=== PATIENT | female | born 1995 | race Caucasian/White ===

== ENCOUNTER 2018-01-07 13:30 | Emergency (ER) | payer OTHER ==
[2018-01-07 13:39] VITALS: BP 123/91
--- NOTE | 2018-01-07 14:00 | UC ---
Complaint Female HPI - HPI Summary HPI Summary: 22 y/o female with no PMH, + meds effexor, suboxone, presents with cloudy vaginal discharge, + vaginal itching, + burning superficially with urination. Concerned about STD d/t infidelity of partner, no fever, chills. symptoms x 1 week + lower abdominal pain - History Of Current Complaint Chief Complaint: UCGU Stated Complaint: BURNING W/ CLOUDY DISCHARGE-MICTURITION Time Seen by Provider: 01/07/18 13:46 Hx Obtained From: Patient Hx Last Menstrual Period: one month ago ?: No - denies Onset/Duration: Sudden Onset, Lasting Days Timing: Constant Severity Currently: None Pain Intensity: 0 - Allergies/Home Medications Allergies/Adverse Reactions: Allergies Allergy/AdvReac Type Severity Reaction Status Date / Time No Known Allergies Allergy Verified 01/07/18 13:42 Home Medications: Home Medications Buprenorp/Nalox 8-2 MG FILM [Suboxone 8 mg-2 mg Sl Film] 1 tab PO DAILY [History Confirmed 01/07/18] Venlafaxine EXT RELEASE CAP* [Effexor Xr CAP*] 1 tab PO DAILY 01/07/18 [History Confirmed 01/07/18] PMH/Surg Hx/FS Hx/Imm Hx Previously Healthy: Yes - mental health Other History Of: Negative For: Anticoagulant Therapy - Surgical History Surgical History: None - Social History Alcohol Use: Occasionally Substance Use Type: None Substance Use Comment - Amount & Last Used: occasional Smoking Status (MU): Light Every Day Tobacco Smoker Review of Systems All Other Systems Reviewed And Are Negative: Yes Genitourinary: Positive: Dysuria, Vaginal/Penile Burning, Vaginal/Penile Itching , Vaginal/Penile Discharge Is Patient Immunocompromised?: No Physical Exam Triage Information Reviewed: Yes Vital Signs: Initial Vital Signs Temp 98.6 F 01/07/18 13:36 Pulse 65 01/07/18 13:36 Resp 18 01/07/18 13:36 BP 123/91 01/07/18 13:36 Pulse Ox 100 01/07/18 13:36 Abdomen Description: Negative: CVA Tenderness (R), CVA Tenderness (L) Pelvic Exam: Positive: External Exam Normal, Speculum Exam Normal, Discharge - milky white, Other - no pain with bimanual exam, no strawberry cervix, no cervical motion tenderness.. Negative: Cervicitis, Lesions, Mass, Tender w/ Cervical Motion, Tender Adnexa, Tender Uterus Skin Exam: Normal Complaint Female Dx - Course Course Of Treatment: UTI, concern about STI. prophylaxic abx given, follow up within 2-3 days. - Differential Dx/Diagnosis Differential Diagnosis/HQI/PQRI: Cervicitis, Sexually Transmitted Disease Provider Diagnoses: UTI, STI prphylaxis Discharge - Sign-Out/Discharge Documenting (check all that apply): Patient Departure All imaging exams completed and their final reports reviewed: No Studies - Discharge Plan Condition: Good Disposition: HOME Prescriptions: Nitrofurantoin Monohyd/M-Cryst [Macrobid 100 mg Capsule] 100 mg PO BID #10 cap Patient Education Materials: Sexually Transmitted Diseases (ED), Urinary Tract Infection in Women (ED), Bacterial Vaginosis (ED) Referrals: No Primary Care Phys,NOPCP [Primary Care Provider] - Additional Instructions: - Antibiotics as directed - STI prophylaxis given - Results from cultures for STI, urinary infection should return in 48 hours - Increase fluid intake - Obstain from sexual intercourse until results arrive - Go to ER with fever, chills, increasing abdominal pain, fever > 101 - Billing Disposition and Condition Condition: GOOD Disposition: Home
[2018-01-07] MEDS ORDERED: cefTRIAXone VIAL(*) 250 MG VIAL IM ONE (14:17)
[2018-01-07] MEDS ORDERED: Azithromycin TAB* 250 MG PO ONE (14:17)
[2018-01-07] MEDS ORDERED: Lidocaine 1%* 5 ML VIAL INJ ONE (14:19)
--- NOTE | 2018-01-09 18:41 | UC ---
- Progress Note Progress Note: 01/09/2018 Urine culture + Staph. saprophyticus. Pt Rx Macrobid PO which will cover. No change. Also Vaginal sample Positive for Gardnerella. Please notify patient Metronidazole vaginal cream sent to pharmacy. Thank you Thelma Emmanuel Discharge - Sign-Out/Discharge Documenting (check all that apply): Patient Departure - D/C home All imaging exams completed and their final reports reviewed: No Studies - Discharge Plan Condition: Good Disposition: HOME Prescriptions: Nitrofurantoin Monohyd/M-Cryst [Macrobid 100 mg Capsule] 100 mg PO BID #10 cap Patient Education Materials: Bacterial Vaginosis (ED), Sexually Transmitted Diseases (ED), Urinary Tract Infection in Women (ED) Referrals: No Primary Care Phys,NOPCP [Primary Care Provider] - Additional Instructions: - Antibiotics as directed - STI prophylaxis given - Results from cultures for STI, urinary infection should return in 48 hours - Increase fluid intake - Obstain from sexual intercourse until results arrive - Go to ER with fever, chills, increasing abdominal pain, fever > 101 - Billing Disposition and Condition Condition: GOOD Disposition: Home
== END 2018-01-07 14:50 | disposition home or self-care (01) ==
LOC: UCEAST 13:30
DX: Z11.3 Encounter for screening for infections with a predominantly sexual mode of transmission (principal); N39.0 Urinary tract infection, site not specified; F17.200 Nicotine dependence, unspecified, uncomplicated
CPT/HCPCS: 81003; 84702; 87077; 87086; 87480; 87491; 87510; 87591; 87661; 96372; 99213; A9270-GY; G0463; J0696

== ENCOUNTER 2018-05-08 21:50 | Emergency (ER) | payer OTHER ==
[2018-05-08] MEDS ORDERED: Nicotine Inhaler* 10 MG AMP INH PRN (22:52)
[2018-05-08] MEDS ORDERED: Mouth Piece, Nicotine* 1 EACH CARTRIDGE INH PRN (23:05)
[2018-05-08 23:10] LABS: Urine Appearance Cloudy; Urine Bilirubin Negative (Negative); Urine Blood Negative (Negative); Urine Color Yellow; Urine Glucose Negative (Negative); Urine Ketones Negative (Negative); Urine Nitrite Negative (Negative); Urine Protein Negative (Negative); Urine Urobilinogen Negative (Negative)
--- NOTE | 2018-05-09 02:26 | ED ---
Psychiatric Complaint - HPI Summary HPI Summary: The patient is a 23 y/o F presenting to [facility] with a chief complaint of being brought in by police for DUI after she got into an argument with her mother mojgan. She states that she was at home when she told her mom she was going to the store and took the car, but her mother, who has depression, anxiety, and bipolar disorder, got angry. The patient continued to leave the home, and her mother called the police on her, which resulted in the patient getting pulled over and brought into the ED. The patient denies SI, and she reports no previous hx of suicide attempt. She takes Effexor, Suboxone, Gabapentin, and Seroquel, which manage her conditions well. LNMP: now. - History Of Current Complaint Chief Complaint: EDMentalHealth Time Seen by Provider: 05/08/18 22:44 Hx Obtained From: Patient Hx Last Menstrual Period: now Onset/Duration: Sudden Onset, Resolved Severity Initially: Moderate Severity Currently: None Character: Frustrated Aggravating Factor(s): Other - argument with mother Alleviating Factor(s): Nothing Associated Signs And Symptoms: Positive: Negative Has Suicidal: Denies: Thoughts - Allergies/Home Medications Allergies/Adverse Reactions: Allergies Allergy/AdvReac Type Severity Reaction Status Date / Time aripiprazole [From [employer]] Allergy Hives Verified 05/08/18 21:55 PMH/Surg Hx/FS Hx/Imm Hx Endocrine/Hematology History: Denies: Hx Anticoagulant Therapy, Hx Diabetes, Hx Thyroid Disease Cardiovascular History: Denies: Hx Hypertension Respiratory History: Denies: Hx Asthma, Hx Chronic Obstructive Pulmonary Disease (COPD) GI History: Denies: Hx Ulcer Psychiatric History: Denies: Hx Eating Disorder, Hx of Violent Episodes Against Others - Surgical History Surgery Procedure, Year, and Place: none Infectious Disease History: No Infectious Disease History: Denies: Hx Hepatitis, Hx Human Immunodeficiency Virus (HIV), Traveled Outside the US in Last 30 Days - Family History Known Family History: Negative: Diabetes - Social History Alcohol Use: Occasionally Substance Use Type: Reports: None Substance Use Comment - Amount & Last Used: occasional Hx Tobacco Use: Yes Smoking Status (MU): Light Every Day Tobacco Smoker Review of Systems Negative: Fever Positive: Other - POSITIVE: argument with mother, drove while intoxicated; NEGATIVE: SI All Other Systems Reviewed And Are Negative: Yes Physical Exam - Summary Physical Exam Summary: Appearance: Well-appearing, Well-nourished, lying in bed comfortable Skin: Warm, dry, no obvious rash Eyes: sclera anicteric, no conjunctival pallor ENT: mucous membranes moist Neck: deferred Respiratory: No signs of respiratory distress Cardiovascular: Appears well perfused, pulses are nml Abdomen: deferred Musculoskeletal: Moving all 4 extremities without obvious discomfort Neurological: Awake and alert, mentation is normal, speech is fluent and appropriate Psychiatric: affect is normal, does not appear anxious or depressed Triage Information Reviewed: Yes Vital Signs On Initial Exam: Initial Vitals Temp Pulse Resp BP Pulse Ox 98.6 F 83 18 116/82 98 05/08/18 21:56 05/08/18 21:56 05/08/18 21:56 05/08/18 21:56 05/08/18 21:56 Vital Signs Reviewed: Yes Diagnostics - Vital Signs Vital Signs Temp Pulse Resp BP Pulse Ox 05/08/18 21:56 98.6 F 83 18 116/82 98 - Laboratory Lab Results: Lab Results 05/08/18 05/08/18 Range/Units 22:27 22:59 Urine Color Yellow Urine Appearance Cloudy Urine pH 5.0 (5-9) Ur Specific Spencer 1.010 (1.010-1.030) Urine Protein Negative (Negative) Urine Ketones Negative (Negative) Urine Blood Negative (Negative) Urine Nitrate Negative (Negative) Urine Bilirubin Negative (Negative) Urine Urobilinogen Negative (Negative) Ur Leukocyte Esterase Negative (Negative) Urine Glucose Negative (Negative) Serum Alcohol 157 H (<10) mg/dL Lab Statement: Any lab studies that have been ordered have been reviewed, and results considered in the medical decision making process. Course/Dx - Course Course Of Treatment: The patient is a 23 y/o F with a chief complaint of being brought in by police for DUI after she got into an argument with her mother mojgan. She was at home when she told her mom she was going to the store and took the car, but her mother, who has depression, anxiety, and bipolar disorder , got angry. The patient continued to leave the home, and her mother called the police on her, which resulted in the patient getting pulled over and brought into the ED. The patient denies SI, and she reports no previous hx of suicide attempt. She takes Effexor, Suboxone, Gabapentin, and Seroquel, which manage her conditions well. Upon physical examination, the patient exhibits no acute abnormalities. In the ED course, the patient was given a Nicotine inhaler. UA reveals serum alcohol of 157. Pending second EtOH. She is in mental health unit at time of shift change. The patient will be a sign-out to Dr. Elle Romero MD, from Dr. Fox Macdonald MD, at change of shift at 0700 pending EtOH detox, MHE, and disposition. - Differential Dx/Clinical Impression Provider Diagnosis: Substance induced mood disorder Discharge - Sign-Out/Discharge Documenting (check all that apply): Sign-Out Patient Signing out patient TO: Elle Romero - Patient will be a sign-out to Dr. Elle Romero MD, from Dr. Fox Macdonald MD, at change of shift at 0700 pending EtOH detox, MHE, and disposition. Patient Received Moderate/Deep Sedation with Procedure: No - Discharge Plan Condition: Stable Disposition: HOME Patient Education Materials: Alcohol Intoxication (ED), Alcohol Dependence (ED) Referrals: No Primary Care Phys,NOPCP [Primary Care Provider] - - Billing Disposition and Condition Condition: STABLE Disposition: Home - Attestation Statements Document Initiated by Percyibjody: Yes Documenting Scribe: Susan Ruelas Provider For Whom Cristian is Documenting (Include Credential): Dr. Fox Macdonald MD Scribe Attestation: Susan Tobar scribed for Dr. Fox Macdonald MD on 05/10/18 at 0434. Scribe Documentation Reviewed: Yes Provider Attestation: The documentation as recorded by the Susan cervantes accurately reflects the service I personally performed and the decisions made by me, Dr. Fox Macdonald MD Status of Scribe Document: Viewed
--- NOTE | 2018-05-09 07:32 | ED ---
Progress - Progress Note Progress Note: RECEIVING SIGN-OUT FROM DR. MACDONALD AT SHIFT CHANGE PENDING MHE. A 23 y/o F presents to ED for MHE due to SI comments made to mother. - Consult/PCP Time Called: 01:00 Course/Dx - Course Course Of Treatment: RECEIVING SIGN-OUT FROM DR. MACDONALD AT SHIFT CHANGE PENDING MHE. 0910: Per Dr. Caballero, psych, patient will be discharged with substance induced mood disorder. - Diagnoses Provider Diagnoses: Substance induced mood disorder Discharge - Sign-Out/Discharge Documenting (check all that apply): Patient Departure - D/C, Receiving Sign-Out Receiving patient FROM: Fox Macdonald Patient Received Moderate/Deep Sedation with Procedure: No - Discharge Plan Condition: Stable Disposition: HOME Patient Education Materials: Alcohol Intoxication (ED), Alcohol Dependence (ED) - Billing Disposition and Condition Condition: STABLE Disposition: Home - Attestation Statements Document Initiated by Scribe: Yes Documenting Scribe: Tila Adam Provider For Whom Scribe is Documenting (Include Credential): Dr. Elle Romero MD Scribe Attestation: Tila Tobar, scribed for Dr. Elle Romero MD on 05/09/18 at 1445. Scribe Documentation Reviewed: Yes Provider Attestation: The documentation as recorded by the Tila cervantes accurately reflects the service I personally performed and the decisions made by , Dr. Elle Romero MD Status of Scribe Document: Viewed
[2018-05-09 10:00] VITALS: BP 130/76
== END 2018-05-09 09:56 | disposition home or self-care (01) ==
LOC: ED 21:50
DX: F19.94 Other psychoactive substance use, unspecified with psychoactive substance-induced mood disorder (principal); F10.94 Alcohol use, unspecified with alcohol-induced mood disorder; Y90.6 Blood alcohol level of 120-199 mg/100 ml; Z88.8 Allergy status to other drugs, medicaments and biological substances; F17.200 Nicotine dependence, unspecified, uncomplicated
CPT/HCPCS: 36415; 80320; 81003; 99285; G0480

== ENCOUNTER 2018-05-11 19:08 | Inpatient (IN) | payer OTHER ==
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
[2018-05-11 19:58] LABS: Urine Appearance Cloudy; Urine Bacteria 1+ (Absent); Urine Bilirubin Negative (Negative); Urine Blood 2+ (Negative); Urine Color Straw; Urine Glucose Negative (Negative); Urine Ketones Negative (Negative); Urine Nitrite Negative (Negative); Urine Protein Negative (Negative); Urine Red Blood Cell Trace(0-2/hpf) (Absent); Urine Specific Gravity 1.004 (1.010-1.030); Urine Squamous Epithelial Cell Present (Absent); Urine Urobilinogen Negative (Negative); Urine White Blood Cell Trace(0-5/hpf) (Absent)
[2018-05-11 20:05] LABS: ABS Basophils 0.1 10^3/ul (0-0.2); ABS Eosinophils 0 10^3/ul (0-0.6); ABS Lymphocytes 1.9 10^3/ul (1.0-4.8); ABS Monocytes 0.3 10^3/ul (0-0.8); ABS Nucleated RBC 0 10^3/ul; Eosinophil % 0.5 %; Hematocrit 45 % (33-41); Hemoglobin 14.9 g/dL (12.0-16.0); Lymphocyte % 30.2 %; Mean Corpuscular HGB Conc 33 g/dL (31-36); Mean Corpuscular Hemoglobin 29 pg (27-31); Mean Corpuscular Volume 87 fL (80-97); Mean Platelet Volume 7.5 fL (7.4-10.4); Nucleated Red Blood Cells % 0; Platelet Count 454 10^3/uL (150-450); Red Cell Distribution Width 13 % (10.5-15); White Blood Count 6.3 10^3/uL (3.5-10.8)
[2018-05-11 20:22] LABS: Barbiturates Urine Screen None Detected (None Detect); Benzodiazepine Urine Screen None Detected (None Detect); Urine Cannabinoids Screen None Detected (None Detect)
[2018-05-11 20:26] LABS: ALT 27 U/L (7-52); AST 42 U/L (13-39); Albumin 4.9 g/dL (3.2-5.2); Albumin/Globulin Ratio 1.6 (1-3); Alkaline Phosphatase 63 U/L (34-104); Anion Gap 15 mmol/L (2-11); BUN/Creatinine Ratio 11.5 (8-20); Blood Urea Nitrogen 7 mg/dL (6-24); CO2 Carbon Dioxide 23 mmol/L (22-32); Calcium 9.2 mg/dL (8.6-10.3); Chloride 103 mmol/L (101-111); EGFR African American 144.6 (>60); EGFR Non-African American 119.5 (>60); Glucose 87 mg/dL (70-100); Potassium 4.1 mmol/L (3.5-5.0); Sodium 141 mmol/L (135-145); Total Protein 7.9 g/dL (6.4-8.9)
[2018-05-11 20:48] LABS: Salicylate < 2.50 mg/dL (<30)
[2018-05-11 20:49] LABS: Alcohol 440 mg/dL (<10)
[2018-05-11] MEDS ORDERED: ACETYLCYSTEINE IVPB ONE ×2 (20:50→20:55)
[2018-05-11] MEDS ORDERED: D5W IVPB ONE ×2 (20:50→20:55)
[2018-05-11 20:59] LABS: Rapid HIV 1 Nonreactive (Nonreactive)
[2018-05-11 21:00] LABS: TSH (Thyroid Stimulating Horm) 0.65 mcIU/mL (0.34-5.60)
[2018-05-11] MEDS ORDERED: Ondansetron INJ* 2 MG/ML VIAL IV PRN (21:30)
[2018-05-11 21:41] LABS: Acetaminophen 3 mcg/mL
[2018-05-11] MEDS ORDERED: Ziprasidone IM INJ* 20 MG/ML VIAL IM ONE (21:49)
[2018-05-11 21:59] LABS: HCG Pregnancy < 0.60 mIU/mL
[2018-05-11 22:05] LABS: Activated Partial Thrombo Time 25.3 seconds (26.0-36.3); INR 0.91 (0.77-1.02)
[2018-05-11] MEDS ORDERED: LORazepam INJ* 2 MG/ML 1 ML VIAL IV PUSH ONE (22:10)
[2018-05-11] MEDS ORDERED: LORazepam INJ* 2 MG/ML 1 ML VIAL ONE (22:11)
[2018-05-11] MEDS ORDERED: Sterile Water for Inj* 10 ML ONE (22:13)
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
[2018-05-12 06:34] LABS: ALT 25 U/L (7-52); AST 38 U/L (13-39); Albumin 4.4 g/dL (3.2-5.2); Albumin/Globulin Ratio 1.6 (1-3); Alkaline Phosphatase 59 U/L (34-104); Anion Gap 11 mmol/L (2-11); BUN/Creatinine Ratio 14.9 (8-20); Blood Urea Nitrogen 10 mg/dL (6-24); CO2 Carbon Dioxide 29 mmol/L (22-32); Calcium 8.6 mg/dL (8.6-10.3); Chloride 103 mmol/L (101-111); EGFR African American 129.8 (>60); EGFR Non-African American 107.2 (>60); Globulin 2.7 g/dL (2-4); Glucose 74 mg/dL (70-100); Potassium 3.6 mmol/L (3.5-5.0); Sodium 143 mmol/L (135-145); Total Protein 7.1 g/dL (6.4-8.9)
[2018-05-12 07:04] LABS: Acetaminophen < 15 mcg/mL; Alcohol 180 mg/dL (<10)
--- NOTE | 2018-05-12 07:06 | ED ---
Progress - Progress Note Progress Note: This patient was signed out from Dr. Barnett to Dr. Piper upon shift change at 07:00 05/12/18 pending sobriety and MHE. Per Mental health tip printer, Dr. Wheatley has decided that the patient will be an involuntary admit. Dx: mood disorder NOS. Course/Dx - Course Course Of Treatment: Ms. Teague was apparently quite intoxicated last night and expressing suicidal ideation. She was apparently carelessly balanced outside the railing on the eighth floor of a parking garage. At change of shift she was sobering up. She was considered medically clear at 9 AM by the numbers and exam. She was evaluated by the mental health provider and consider to be unsafe. We will concern for safety and she was made a 939 involuntary admission to the mental health unit. - Diagnoses Provider Diagnoses: Mood disorder - Provider Notifications Discussed Care Of Patient With: Rogelio Wheatley Time Discussed With Above Provider: 10:16 Instructed by Provider To: Other - Per Mental health tip printer, Dr. Wheatley has decided that the patient will be an involuntary admit. Dx: mood disorder NOS. Discharge - Sign-Out/Discharge Documenting (check all that apply): Patient Departure - admit, Receiving Sign- Out Receiving patient FROM: Rashad Barnett Patient Received Moderate/Deep Sedation with Procedure: No - Discharge Plan Condition: Fair Disposition: PSYCHIATRIC FACILITY-[facility] Referrals: No Primary Care Phys,NOPCP [Primary Care Provider] - - Billing Disposition and Condition Condition: FAIR Disposition: Psychiatric Facility [facility] - Attestation Statements Document Initiated by Scribe: Yes Documenting Scribe: Dieter Lea Provider For Whom Cristian is Documenting (Include Credential): Fox Piper MD Scribjody Attestation: Dieter Tobar, scribed for Fox Piper MD on 05/12/18 at 1026. Scribe Documentation Reviewed: Yes Provider Attestation: The documentation as recorded by the Dieter cervantes accurately reflects the service I personally performed and the decisions made by me, Fox Piper MD Status of Scribe Document: Viewed
[2018-05-12 10:04] LABS: Hepatitis C Antibody Nonreactive (Nonreactive)
[2018-05-12] MEDS ORDERED: Acetaminophen TAB* 325 MG PO PRN (10:12)
[2018-05-12 10:56] LABS: Hepatitis B Surface AB Not Immune (Immune)
[2018-05-12] MEDS ORDERED: LORazepam TAB(*) 1 MG PO SCH (11:00)
[2018-05-12] MEDS: Folic Acid TAB* 1 MG PO SCH (14:09)
[2018-05-12] MEDS: Venlafaxine EXT RELEASE CAP* 75 MG PO SCH (14:09)
[2018-05-12] MEDS: Multivitamins/Minerals TAB PO SCH (14:10)
[2018-05-12] MEDS: Thiamine TAB* 100 MG TAB PO SCH (14:10)
[2018-05-12] MEDS: Buprenorp/Nalox 8-2 MG FILM 1 EACH SL FILM SCH (14:12)
[2018-05-12] MEDS: Gabapentin CAP(*) 400 MG PO SCH ×2 (14:12→19:55)
[2018-05-12] MEDS ORDERED: Ondansetron TAB* 4 MG PO PRN (17:23)
[2018-05-12] MEDS: QUEtiapine TAB* 25 MG PO SCH (19:55)
[2018-05-13] MEDS: Venlafaxine EXT RELEASE CAP* 75 MG PO SCH (10:43)
[2018-05-13] MEDS: Folic Acid TAB* 1 MG PO SCH (10:43)
[2018-05-13] MEDS: Multivitamins/Minerals TAB PO SCH (10:43)
[2018-05-13] MEDS: Buprenorp/Nalox 8-2 MG FILM 1 EACH SL FILM SCH (10:43)
[2018-05-13] MEDS: Gabapentin CAP(*) 400 MG PO SCH ×3 (10:43→20:06)
[2018-05-13] MEDS: Thiamine TAB* 100 MG TAB PO SCH (10:43)
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
--- NOTE | 2018-05-13 14:33 | PN ---
Subjective - Subjective Date of Service: 05/13/18 Service Type: 42192 Hosp care 15 min low complexity Subjective: Izabela reports she is not suicidal now, never is unless she is intoxicated. Reports that alcohol turns her into an whole different person, with snapping at people and behaving in antisocial ways she would never do if sober. She complains that she is losing her hair. She reports sleeping OK, that the food is good her, and that her mood is being heavily influenced by fear of the consequences of a recent DWI. She reported, incidentally, a history of a positive UDS for morphine from the combination of quetiapine and Suboxone. She reports she would be interested in inpatient rehab. Discussed naltrexone, disulfiram, Campral. She declined any trial as she says she takes Suboxone against alcohol use disorder. Objective - Appearance Appearance: Well Developed/Nourished Dysmorphic Features: No Hygiene: Normal Grooming: Well Kept - Behavior Psychomotor Activities: Normal Exhibits Abnormal Movement: No - Attitude and Relatedness Attitude and Relatedness: Appropriate Eye Contact: Good - Speech Quality: Unpressured Latencies: Normal Quantity: Appropriate - Mood Patient's Decription of Mood: "I'm having crying spells because I've hurt people I love" - Affect Observed Affect: Labile Affect Consistent with: Dysphoria - Thought Process Patient's Thought Process: Coherent, Goal Directed Thought Content: No Passive Wish, No Suicidal Planning, No Homicidal Ideation, No Paranoid Ideation - Sensorium Experiencing Hallucinations: No, Sensorium is Clear - Level of Consciousness Level of Consciousness: Alert Orientation: Yes Intact, Yes Orientated to Time, Yes Orientated to Place, Yes Orientated to Person - Impulse Control Impulse Control: Intact - Insight and Judgement Insight and Judgement: Fair - Group Participation Particating in Group Activities: Yes - Medication Management Medication Management Adherence: Yes Assessment - Assessment Merits Inpatient Hospitalization: For Immediate Safety, For Stabilization, For Discharge Planning, Pending Safe DC Plan Clinical Impression: Izabela has been admitted for safety, assessment and treatment after being found hanging by her arms from a parking garage. she reports she is only suicidal when intoxicated with alcohol, which she was. She remains at risk of harm with re-intoxication. She is agreeable to inpatient rehab. This might be the best she can be offered toward stabilization in the short term. she also has had elevated blood pressure readings, and this should be monitored and treated if it persists past detox. Plan - Plan Treatment Plan: Name: IZABELA MCGREGOR Birthdate: 1995 [id number] Continued Medication Management: Continue Outpt Medication Medications: Current Medications Acetaminophen (Tylenol Tab*) 650 mg PO Q4H PRN PRN Reason: PAIN Buprenorphine/Naloxone (Suboxone 8 Mg-2 Mg Sl Film) 1 each SL FILM DAILY [facility] Last Admin: 05/13/18 10:43 Dose: 1 each Folic Acid (Folvite Tab*) 1 mg PO DAILY [facility] Last Admin: 05/13/18 10:43 Dose: 1 mg Gabapentin (Neurontin Cap(*)) 400 mg PO TID [facility] Last Admin: 05/13/18 10:43 Dose: 400 mg Lorazepam (Ativan Tab(*)) 0 - 6 mg PO .PER [facility] PROTOCOL [facility]; Protocol Multivitamins/Minerals (Theragran/Minerals Tab*) 1 tab PO DAILY [facility] Last Admin: 05/13/18 10:43 Dose: 1 tab Ondansetron HCl (Zofran Tab*) 4 mg PO Q6H PRN PRN Reason: NAUSEA Quetiapine Fumarate (Seroquel Tab*) 50 mg PO BEDTIME [facility] Last Admin: 05/12/18 19:55 Dose: 50 mg Thiamine HCl (Vitamin B-1 Tab*) 100 mg PO DAILY [facility] Last Admin: 05/13/18 10:43 Dose: 100 mg Venlafaxine HCl (Effexor Xr Cap*) 150 mg PO DAILY [facility] Last Admin: 05/13/18 10:43 Dose: 150 mg - Discharge Plan Discharge Plan: Drug/Alcohol Rehab
[2018-05-13] MEDS ORDERED: LORazepam TAB(*) 1 MG ONE (18:36)
[2018-05-13] MEDS: QUEtiapine TAB* 25 MG PO SCH (20:07)
[2018-05-13] MEDS ORDERED: LORazepam TAB(*) 1 MG PO ONE (22:21)
[2018-05-14] MEDS: Thiamine TAB* 100 MG TAB PO SCH (09:04)
[2018-05-14] MEDS: Gabapentin CAP(*) 400 MG PO SCH ×3 (09:04→20:02)
[2018-05-14] MEDS: Venlafaxine EXT RELEASE CAP* 75 MG PO SCH (09:04)
[2018-05-14] MEDS: Multivitamins/Minerals TAB PO SCH (09:04)
[2018-05-14] MEDS: Buprenorp/Nalox 8-2 MG FILM 1 EACH SL FILM SCH (09:04)
[2018-05-14] MEDS: Folic Acid TAB* 1 MG PO SCH (09:04)
[2018-05-14] MEDS ORDERED: Mouth Piece, Nicotine* 1 EACH CARTRIDGE INH SCH (12:44)
[2018-05-14] MEDS: Nicotine Inhaler* 10 MG AMP INH PRN (14:23)
[2018-05-14] MEDS: QUEtiapine TAB* 25 MG PO SCH (20:02)
[2018-05-15] MEDS: Folic Acid TAB* 1 MG PO SCH (08:02)
[2018-05-15] MEDS: Thiamine TAB* 100 MG TAB PO SCH (08:02)
[2018-05-15] MEDS: Multivitamins/Minerals TAB PO SCH (08:02)
[2018-05-15] MEDS: Gabapentin CAP(*) 400 MG PO SCH ×3 (08:02→19:47)
[2018-05-15] MEDS: Venlafaxine EXT RELEASE CAP* 75 MG PO SCH (08:02)
[2018-05-15] MEDS: Buprenorp/Nalox 8-2 MG FILM 1 EACH SL FILM SCH (09:06)
[2018-05-15] MEDS: Nicotine Inhaler* 10 MG AMP INH PRN (11:57)
--- NOTE | 2018-05-15 13:17 | PN ---
BSU: Group Therapy Note - Service Type Service Type: [id number] Group Psychotherapy - Cognitive Behavioral Group Therapy ( CBT):Patient was attentive and participatory in CBT programming this morning, and remained in good behavioral control. Patient expressed positive insights regarding relevant treatment interventions and goals.
--- NOTE | 2018-05-15 15:07 | PN ---
Subjective - Subjective Date of Service: 05/15/18 Service Type: 38200 Hosp care 25 min moderate complexity Subjective: Izabela demonstrates poor insight when it comes to her drinking alcohol. She has a court date for a DWI on May 29. She would like to be discharged and go "take care of some things" before she goes to inpatient rehab. Objective - Appearance Appearance: Healthy Appearing Dysmorphic Features: No Hygiene: Normal Grooming: Well Kept - Behavior Psychomotor Activities: Normal Exhibits Abnormal Movement: No - Attitude and Relatedness Attitude and Relatedness: Superficially Cooperative Eye Contact: Good - Speech Quality: Pressured Latencies: Normal Quantity: Copious - Mood Patient's Decription of Mood: "Fine" - Affect Observed Affect: Tense Affect Consistent with: Dysphoria - Thought Process Patient's Thought Process: Coherent, Goal Directed Thought Content: No Passive Wish, No Suicidal Planning, No Homicidal Ideation, No Paranoid Ideation - Sensorium Experiencing Hallucinations: No, Sensorium is Clear Type of Hallucinations: Visual: No, Auditory: No, Command: No - Level of Consciousness Level of Consciousness: Alert Orientation: Yes Intact, Yes Orientated to Time, Yes Orientated to Place, Yes Orientated to Person - Impulse Control Impulse Control: Impaired - Insight and Judgement Insight and Judgement: Impaired - Group Participation Particating in Group Activities: Yes - Medication Management Medication Management Adherence: Yes Assessment - Assessment Merits Inpatient Hospitalization: For Immediate Safety Inpatient DSM-V Dx: F10.14 Clinical Impression: Izabela has been admitted for safety, assessment and treatment after being found hanging by her arms from a parking garage. she reports she is only suicidal when intoxicated with alcohol, which she was. She remains at risk of harm with re-intoxication. She is agreeable to inpatient rehab. This might be the best she can be offered toward stabilization in the short term. she also has had elevated blood pressure readings, and this should be monitored and treated if it persists past detox. Plan - Plan Treatment Plan: Name: IZABELA MCGREGOR Birthdate: 1995 [id number] Continued Medication Management: Different Medication Medications: Current Medications Acetaminophen (Tylenol Tab*) 650 mg PO Q4H PRN PRN Reason: PAIN Buprenorphine/Naloxone (Suboxone 8 Mg-2 Mg Sl Film) 1 each SL FILM DAILY [facility] Last Admin: 05/15/18 09:06 Dose: 1 each Device (Nicotine Mouth Piece*) 1 each INH .[facility] COUNTS INCLUDE 234 BEDS AT THE [facility] Last Admin: 05/14/18 14:23 Dose: 1 each Folic Acid (Folvite Tab*) 1 mg PO DAILY [facility]S INCLUDE 234 BEDS AT THE [facility] Last Admin: 05/15/18 08:02 Dose: 1 mg Gabapentin (Neurontin Cap(*)) 400 mg PO TID COUNTS INCLUDE 234 BEDS AT THE [facility] Last Admin: 05/15/18 14:52 Dose: 400 mg Lorazepam (Ativan Tab(*)) 0 - 6 mg PO .PER [facility] PROTOCOL COUNTS INCLUDE 234 BEDS AT THE [facility]; Protocol Multivitamins/Minerals (Theragran/Minerals Tab*) 1 tab PO DAILY [facility]S INCLUDE 234 BEDS AT THE [facility] Last Admin: 05/15/18 08:02 Dose: 1 tab Nicotine (Nicotine Inhaler*) 10 mg INH Q2H PRN PRN Reason: CRAVING Last Admin: 05/15/18 11:57 Dose: 10 mg Ondansetron HCl (Zofran Tab*) 4 mg PO Q6H PRN PRN Reason: NAUSEA Quetiapine Fumarate (Seroquel Tab*) 50 mg PO BEDTIME COUNTS INCLUDE 234 BEDS AT THE [facility] Last Admin: 05/14/18 20:02 Dose: 50 mg Thiamine HCl (Vitamin B-1 Tab*) 100 mg PO DAILY COUNTS INCLUDE 234 BEDS AT THE [facility] Last Admin: 05/15/18 08:02 Dose: 100 mg Venlafaxine HCl (Effexor Xr Cap*) 150 mg PO DAILY [facility]S INCLUDE 234 BEDS AT THE [facility] Last Admin: 05/15/18 08:02 Dose: 150 mg - Discharge Plan Discharge Plan: Drug/Alcohol Rehab Additional Comments: Izabela would benefit significantly from rehab for alcohol use. She is refusing that, however. The plan is to revisit the alcohol use problem and attempt to instill some cognizance of her role and alcohol's role and the hold alcohol has over her.
[2018-05-15] MEDS: QUEtiapine TAB* 25 MG PO SCH (19:48)
[2018-05-16] MEDS: Multivitamins/Minerals TAB PO SCH (07:52)
[2018-05-16] MEDS: Venlafaxine EXT RELEASE CAP* 75 MG PO SCH (07:52)
[2018-05-16] MEDS: Thiamine TAB* 100 MG TAB PO SCH (07:52)
[2018-05-16] MEDS: Gabapentin CAP(*) 400 MG PO SCH ×3 (07:52→20:23)
[2018-05-16] MEDS: Folic Acid TAB* 1 MG PO SCH (07:52)
[2018-05-16] MEDS: Buprenorp/Nalox 8-2 MG FILM 1 EACH SL FILM SCH (10:14)
--- NOTE | 2018-05-16 11:11 | PN ---
BSU: Group Therapy Note - Service Type Service Type: [id number] Group Psychotherapy - Cognitive Behavioral Group Therapy ( CBT):Patient was attentive and participatory in CBT programming this morning, and remained in good behavioral control. Patient expressed positive insights regarding relevant treatment interventions and goals.
[2018-05-16] MEDS: Nicotine Inhaler* 10 MG AMP INH PRN (14:37)
--- NOTE | 2018-05-16 16:55 | PN ---
Subjective - Subjective Date of Service: 05/16/18 Service Type: [id number] Hosp care 15 min low complexity Subjective: Patient reports desire to participate in outpatient substance use treatment. She expresses self-awareness in regards to alcohol use and that she has a sponsor in [facility] in [place]. She states she may consider inpatient treatment after coordinating paying bills and court appearances. She states intent to stay in [facility] with her brother and agrees to meet with him and treatment providers for safety planning. She is receptive to suggestions in regards to recovery resources in the area. She denies need for medication changes today. Objective - Appearance Appearance: Well Developed/Nourished Dysmorphic Features: Yes Hygiene: Normal Grooming: Well Kept - Behavior Psychomotor Activities: Normal Exhibits Abnormal Movement: No - Attitude and Relatedness Attitude and Relatedness: Guarded Eye Contact: Good - Speech Quality: Unpressured Latencies: Normal Quantity: Appropriate - Mood Patient's Decription of Mood: "Okay" - Affect Observed Affect: Constricted Affect Consistent with: Dysphoria - Thought Process Patient's Thought Process: Coherent, Goal Directed Thought Content: No Passive Wish, No Suicidal Planning, No Homicidal Ideation, No Paranoid Ideation - Sensorium Experiencing Hallucinations: No, Sensorium is Clear Type of Hallucinations: Visual: No, Auditory: No, Command: No - Level of Consciousness Level of Consciousness: Alert Orientation: Yes Intact, Yes Orientated to Time, Yes Orientated to Place, Yes Orientated to Person - Impulse Control Impulse Control: Intact - Insight and Judgement Insight and Judgement: Fair - Group Participation Particating in Group Activities: Yes - Medication Management Medication Management Adherence: Yes Assessment - Assessment Merits Inpatient Hospitalization: For Immediate Safety, For Stabilization, For Discharge Planning Clinical Impression: 23yo female with hx of opiate use d/o, in remission with MAT and alcohol use d/o who presented to ED after an interrupted suicide attempt via hanging in a parking garage. Upon arrival to ED, her serum alcohol was >400. She has successfully detoxed from alcohol and reports willingness to participate in outpatient treatment. She merits hospitalization for safety and discharge planning. Plan - Plan Treatment Plan: Name: IZABELA MCGREGOR Birthdate: 1995 [id number] continue acute intensive psychiatric treatment. continue current medications. discharge planning to include family meeting and outpatient provider referrals. Medications: Current Medications Acetaminophen (Tylenol Tab*) 650 mg PO Q4H PRN PRN Reason: PAIN Buprenorphine/Naloxone (Suboxone 8 Mg-2 Mg Sl Film) 1 each SL FILM DAILY [facility] Last Admin: 05/16/18 10:14 Dose: 1 each Device (Nicotine Mouth Piece*) 1 each INH .[place] [facility] Last Admin: 05/14/18 14:23 Dose: 1 each Folic Acid (Folvite Tab*) 1 mg PO DAILY [facility] Last Admin: 05/16/18 07:52 Dose: 1 mg Gabapentin (Neurontin Cap(*)) 400 mg PO TID [facility] Last Admin: 05/16/18 14:37 Dose: 400 mg Lorazepam (Ativan Tab(*)) 0 - 6 mg PO .PER [facility] PROTOCOL [facility]; Protocol Multivitamins/Minerals (Theragran/Minerals Tab*) 1 tab PO DAILY [facility] Last Admin: 05/16/18 07:52 Dose: 1 tab Nicotine (Nicotine Inhaler*) 10 mg INH Q2H PRN PRN Reason: CRAVING Last Admin: 05/16/18 14:37 Dose: 10 mg Ondansetron HCl (Zofran Tab*) 4 mg PO Q6H PRN PRN Reason: NAUSEA Quetiapine Fumarate (Seroquel Tab*) 50 mg PO BEDTIME [facility] Last Admin: 05/15/18 19:48 Dose: 50 mg Thiamine HCl (Vitamin B-1 Tab*) 100 mg PO DAILY [facility] Last Admin: 05/16/18 07:52 Dose: 100 mg Venlafaxine HCl (Effexor Xr Cap*) 150 mg PO DAILY [facility] Last Admin: 05/16/18 07:52 Dose: 150 mg - Discharge Plan Discharge Plan: Inpatient Hospitalization
[2018-05-16] MEDS: QUEtiapine TAB* 25 MG PO SCH (20:25)
[2018-05-17] MEDS: Gabapentin CAP(*) 400 MG PO SCH ×2 (08:04→14:30)
[2018-05-17] MEDS: Multivitamins/Minerals TAB PO SCH (08:05)
[2018-05-17] MEDS: Thiamine TAB* 100 MG TAB PO SCH (08:05)
[2018-05-17] MEDS: Folic Acid TAB* 1 MG PO SCH (08:05)
[2018-05-17] MEDS: Venlafaxine EXT RELEASE CAP* 75 MG PO SCH (08:05)
[2018-05-17] MEDS: Buprenorp/Nalox 8-2 MG FILM 1 EACH SL FILM SCH (09:21)
[2018-05-17 10:54] VITALS: BP 129/90
== END 2018-05-17 15:27 | disposition home or self-care (01) | DRG 773 ==
LOC: ED 19:08 → BSU 05-12 10:10
PROVIDERS: ADMIT Psychiatry & Neurology Psychiatry; ATTEND Psychiatry & Neurology Psychiatry
DX: F10.24 Alcohol dependence with alcohol-induced mood disorder (principal); R45.851 Suicidal ideations; Y90.8 Blood alcohol level of 240 mg/100 ml or more; F10.229 Alcohol dependence with intoxication, unspecified; F11.21 Opioid dependence, in remission; F32.9 Major depressive disorder, single episode, unspecified; Z79.899 Other long term (current) drug therapy; Z81.8 Family history of other mental and behavioral disorders
CPT/HCPCS: 36415; 80053; 80061; 80307; 80320; 80329; 81003; 81015; 83036; 84443; 84484; 84702; 85025; 85610; 85730; 86703; 86706; 86803; 87086; 90853; 93005; 99222; 99231; 99232; 99238; 99284; A9270-GY; G0480; J0132; J2060; J3486

== ENCOUNTER 2018-08-09 10:26 | Emergency (ER) | payer OTHER ==
[2018-08-09 10:45] VITALS: BP 147/105
--- NOTE | 2018-08-09 11:26 | UC ---
Skin Complaint HPI - HPI Summary HPI Summary: Pt presents for evaluation of bilateral ear lobes. Pt use wooden guages 1 week ago. Pt states lobes became red and painful. Pt states removed - continues with reddness and swelling. Pt states had been washing with warm soap water and using hydrogen peroxide. Pt states feels increased dryness and discomfort. No fever, chills. Tdap UTD. Not immunocompromised. No fever, chills mild pain, no drainage. Pt also reports feels like right ear is plugged - previous to ear infections. Not medications reviewed this visit - History of Current Complaint Chief Complaint: UCEar Time Seen by Provider: 08/09/18 10:33 Stated Complaint: INFECTED EAR LOBES Hx Obtained From: Patient Hx Last Menstrual Period: 1 month ago Onset/Duration: Gradual Onset Skin Exposure Onset/Duration: Days Ago Onset Severity: Moderate Current Severity: Mild Pain Intensity: 1 - worse with palpation - Allergy/Home Medications Allergies/Adverse Reactions: Allergies Allergy/AdvReac Type Severity Reaction Status Date / Time aripiprazole [From [employer] Allergy Hives Verified 08/09/18 10:37 PMH/Surg Hx/FS Hx/Imm Hx Previously Healthy: Yes Other History Of: Negative For: Anticoagulant Therapy - Surgical History Surgical History: None Surgery Procedure, Year, and Place: none - Family History Known Family History: Positive: Non-Contributory Negative: Diabetes - Social History Occupation: Employed Full-time Lives: With Family Substance Use Type: None Substance Use Comment - Amount & Last Used: unknown Smoking Status (MU): Light Every Day Tobacco Smoker Household Exposure Type: Cigarettes - Immunization History Most Recent Influenza Vaccination: has not received Most Recent Pneumonia Vaccination: n/a Review of Systems All Other Systems Reviewed And Are Negative: Yes Constitutional: Positive: Negative Skin: Positive: Other - bilateral ear lobes ENT: Positive: Other - right ear decreased hearing, feels plugged Physical Exam - Summary Physical Exam Summary: Vital Signs Reviewed: Yes A+Ox3, no distress Eyes: Conjunctiva Clear, LINH. EOM intact and full ENT: Hearing grossly normal right ear canal - mild cerum obscur 2/3 TM no fluid , erythema b/l lobes inflammed and red + TTP no fluctuance, no drainage mild TTP. no induiration + focal edema to lobes. no tragus or cartilage erythema . No tenderness on mastoid, TMJ, mmoist, uvula midline, no exudate, no erythema Neck: Positive: Supple Respiratory: Positive: No respiratory distress, No accessory muscle use + CTA throughout no w/r Cardiovascular: RRR nl s1, s2 no m/r CBT <2 sec abd soft + BS nt/nd no guarding, no distension Musculoskeletal Exam: RAMÍREZ x 4 without difficulty Strength Intact, ROM Intact Neurological: Positive: Alert, + sensation throughout Psychological: Positive: Normal Response To Family Skin: Positive: no rash, no ecchymosis Triage Information Reviewed: Yes Vital Signs: Initial Vital Signs Temp 98.5 F 08/09/18 10:39 Pulse 99 08/09/18 10:39 Resp 16 08/09/18 10:39 BP 147/105 08/09/18 10:39 Pulse Ox 96 08/09/18 10:39 Re-Evaluation - Re-Evaluation First Eval Comment: cerumen removed from canal - pt tolerated well -s tates hearing at baseline Course/Dx - Course Course Of Treatment: Pt prestents with cellulitis to bilateral ear drums following use of wood guage - removed. pt has been applying peroxide -witout improvement In exam, right cerumen impaction b/l ear lobe with cellulitis - no fluctuance, no concern for abscess, no cartilage involvement recommend abx (cover MRSA) s/s return strict - discussed will irrigate canal on right and reassess elevated BP - follow-up with PCP - Diagnoses Provider Diagnosis: Cellulitis, Impacted cerumen of right ear Discharge - Sign-Out/Discharge Documenting (check all that apply): Patient Departure All imaging exams completed and their final reports reviewed: No Studies - Discharge Plan Condition: Stable Disposition: HOME Prescriptions: Clindamycin Cap(NF) [Clindamycin Cap 300 mg Cap(NF)] 300 mg PO TID #30 cap Mupirocin 2% CREAM* [Bactroban 2% CREAM*] 1 applic TOPICAL BID #1 tube Patient Education Materials: Cellulitis (ED), Cerumen Impaction (ED), Pierced Earlobe Infection (ED) Referrals: [facility] [Outside] No Primary Care Phys,NOPCP [Primary Care Provider] - Additional Instructions: - Take antibiotics as prescribed until gone. They may cause diarrhea - take probiotics or eat yogurt to help with diarrhea - cover the inflammed skin of your lobes and behind your ear with antibiotic cream as prescribed - Monitor for increased infection - reddness, red streaking, fever, swelling- it is recommended you go to the emergency department with any development of these symptoms - It is okay to take decongestant or over the counter nasal spray (Flonase, nasonex) to help with congestion - contact the physician referral center for help establishing with a primary care provider - Billing Disposition and Condition Condition: STABLE Disposition: Home
== END 2018-08-09 11:25 | disposition home or self-care (01) ==
LOC: UCEAST 10:26
DX: H60.13 Cellulitis of external ear, bilateral (principal); H61.21 Impacted cerumen, right ear; R03.0 Elevated blood-pressure reading, without diagnosis of hypertension; Z88.8 Allergy status to other drugs, medicaments and biological substances; F17.210 Nicotine dependence, cigarettes, uncomplicated
CPT/HCPCS: 99213; G0463